=== PATIENT | male | born 1975 | race Hispanic/Latino ===

== ENCOUNTER 2019-09-23 03:58 | Inpatient (IN) | payer SELFPAY ==
[2019-09-23] MEDS ORDERED: Promethazine HCl 25 MG/ML VIAL ONE (04:20)
[2019-09-23 04:37] LABS: Hemoglobin 5.8 g/dL (14.0-18.0); Mean Corpuscular Volume 95.7 fL (78.0-98.0)
[2019-09-23 04:48] LABS: #Lymphocytes 0.7 thou/uL (1.20-3.40); #Monocytes 0.2 thou/uL (0.11-0.59); #Neutrophils 2.5 thou/uL (1.40-6.50); %Basophils 1.2 % (0.0-1.0); %Eosinophils 0.9 % (0.0-10.0); %Lymphocytes 19.3 % (21.0-51.0); %Monocytes 4.9 % (0.0-10.0); %Neutrophils 73.8 % (42.0-75.0); Mean Corpuscular Hemoglobin 35.4 pg (27.0-31.0); Mean Platelet Volume 7.5 fL (7.4-10.4); Platelet Count 65 thou/uL (130-400); Platelet Morphology Comment Appears Decreased; RBC Distribution Width 11.8 % (11.5-14.5); Red Blood Cell (RBC) Count 1.63 mill/uL (4.70-6.10); White Blood Cell (WBC) Count 3.4 thou/uL (4.8-10.8)
[2019-09-23 04:49] LABS: ALT (SGPT) 21 U/L (8-55); AST (SGOT) 45 U/L (5-34); Albumin 3.4 g/dL (3.5-5.0); Alcohol 135 mg/dL (Less than 10); Alkaline Phosphatase 108 U/L (40-110); Anion Gap 18 mmol/L (10-20); BUN (Urea Nitrogen) 27 mg/dL (8.9-20.6); Bilirubin, Total 0.4 mg/dL (0.2-1.2); Calc. Creatinine Clearance 0 mL/min (70-130); Calcium 7.5 mg/dL (7.8-10.44); Carbon Dioxide 10 mmol/L (22-29); Chloride 97 mmol/L (98-107); Estimated GFR-MDRD 24; Globulin 2.8 g/dL (2.4-3.5); Glucose 104 mg/dL (70-105); Potassium 3.5 mmol/L (3.5-5.1); Protein, Total 6.2 g/dL (6.0-8.3); Sodium 121 mmol/L (136-145)
[2019-09-23 06:27] LABS: #Lymphocytes 0.3 thou/uL (1.20-3.40); #Monocytes 0.1 thou/uL (0.11-0.59); #Neutrophils 2.4 thou/uL (1.40-6.50); %Eosinophils 0.5 % (0.0-10.0); %Lymphocytes 11.6 % (21.0-51.0); %Monocytes 4.9 % (0.0-10.0); %Neutrophils 82.9 % (42.0-75.0); Hemoglobin 5.5 g/dL (14.0-18.0); Mean Corpuscular HGB CONC 37.5 g/dL (32.0-36.0); Mean Corpuscular Volume 95.8 fL (78.0-98.0); Mean Platelet Volume 7.5 fL (7.4-10.4); Platelet Count 58 thou/uL (130-400); RBC Distribution Width 11.6 % (11.5-14.5); Red Blood Cell (RBC) Count 1.53 mill/uL (4.70-6.10); White Blood Cell (WBC) Count 2.9 thou/uL (4.8-10.8)
[2019-09-23 06:45] LABS: Band 8 % (5-11); Lymphocytes 16 % (21-51); Monocytes 4 % (0-10)
[2019-09-23 06:56] LABS: Reticulocyte Count 5.3 % (0.5-1.5)
[2019-09-23] MEDS ORDERED: Acetaminophen 325 MG TAB PO PRN (07:26)
[2019-09-23] MEDS ORDERED: Ondansetron PF 4 MG/2 ML Vial IVP PRN (07:26)
[2019-09-23] MEDS ORDERED: Guaifenesin DM 100-10/5 ML UDCUP PO PRN (07:26)
[2019-09-23] MEDS ORDERED: Octreotide Acetate 1,250 MCG in Sodium Chloride 0.9% 250 ML 250 ML IVPB SCH (07:30)
[2019-09-23] MEDS ORDERED: Pantoprazole 80 MG in Sodium Chloride 0.9% 100 ML IVPB SCH (07:30)
[2019-09-23 07:59] LABS: INR-International Normal Ratio 1.1; PTT 34.2 SEC (22.9-36.1); Prothrombin Time 13.7 SEC (12.0-14.7)
[2019-09-23 08:05] VITALS: BMI 22.7
[2019-09-23] MEDS ORDERED: Pantoprazole 80 MG, Admixture Fee 1 EACH in Sodium Chloride 0.9% 100 ML IVPB SCH (08:15)
[2019-09-23 08:21] LABS: Iron 127 ug/dL (65-175); Iron Binding Capacity, Total 175 mcg/dL (261-462)
[2019-09-23] MEDS ORDERED: Dextrose 5 % And 0.9 % NaCl 1,000 ML IV SCH (08:30)
[2019-09-23 09:17] LABS: Ferritin 307.85 ng/mL (22-322)
[2019-09-23] MEDS ORDERED: Multivitamins, Adult 10 ML, Folic Acid 1 MG, Thiamine HCl 100 MG in Dextrose 5 %-0.45 %... IV SCH (10:45)
[2019-09-23] MEDS: hydrALAZINE 25 MG TAB PO SCH ×2 (14:26→20:29)
[2019-09-23] MEDS ORDERED: Dextrose 5% in Water 1,000 ML IV PRN (14:27)
[2019-09-23] MEDS ORDERED: Dextrose 50% Abboject 50 ML SYRINGE SLOW IVP PRN (14:27)
[2019-09-23 14:54] LABS: Hemoglobin 8.2 g/dL (14.0-18.0)
--- NOTE | 2019-09-23 15:12 | HP ---
REASON FOR ADMISSION: Acute blood loss anemia, acute kidney injury, alcohol abuse, and pancytopenia. HISTORY OF PRESENTING ILLNESS: The patient gives history of feeling dizzy when he tried to get up in the morning. He fell back onto his bed. He tried to get up again and was feeling very dizzy. Mr. Lugo felt that something was not right and called EMS. No complaints of cough or expectoration. No history of fever. No complaints of hemoptysis, hematemesis, or melena. He admits to drinking at least 8 beers daily. He has been doing so from 20 years of age. He has known history of diabetes and has not been taking any medications due to financial reasons. No prior hospitalizations for low hemoglobin. He does not recall if he was anemic before. No abdominal pain, nausea, or vomiting. No diarrhea. PAST MEDICAL AND SURGICAL HISTORY: Diabetes mellitus from last 15 years. No surgical history. CURRENT MEDICATIONS: None. ALLERGIES: ALLERGIC TO PENICILLIN. PERSONAL HISTORY: Drinks 8 beers daily. He has been doing so from 20 years of age, quit smoking 6 years back; prior to which, has smoked 1 pack a day for 4 years. Quit cocaine 20 years ago, but has done it for 3 years prior to that. Does not abuse any drugs at present. He lives with his 2 brothers who work in construction. Has a daughter who is 24 years old. FAMILY HISTORY: Mother of breast cancer and its complications at the age of 77. Father of unknown cancer at the age of 79. CODE STATUS: Full. 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 Odin Lugo and Anderson Lugo. REVIEW OF SYSTEMS: CONSTITUTIONAL: Negative for weight loss or gain, ability to conduct usual activities. SKIN: Negative for rash, itching. EYES: Negative for double vision, pain. ENT/MOUTH: Negative for nose bleeding, neck stiffness, pain, tenderness. CARDIOVASCULAR: Negative for palpitations, dyspnea on exertion, orthopnea. RESPIRATORY: Negative for shortness of breath, wheezing, cough, hemoptysis, fever or night sweats. GASTROINTESTINAL: Negative for poor appetite, abdominal pain, heartburn, nausea , vomiting, constipation, or diarrhea. GENITOURINARY: Negative for urgency, frequency, dysuria, nocturia. MUSCULOSKELETAL: Negative for pain, swelling. NEUROLOGIC/PSYCHIATRIC: Negative for anxiety, depression. ALLERGY/IMMUNOLOGIC: Negative for skin rash, bleeding tendency. PHYSICAL EXAMINATION: GENERAL: The patient is a 44-year-old who is currently not in any acute distress. VITAL SIGNS: Blood pressure 190/90, pulse 100 per minute, respiratory rate 18 per minute, temperature 97.7 degrees Fahrenheit, and saturating 100% on room air. NECK: Supple. No elevated JVD. HEENT: Eyes; extraocular muscles intact. Pupils reacting to light. Oral cavity, mucous membranes are dry and pale. No exudates seen. The patient is missing numerous teeth due to dental caries. CARDIOVASCULAR SYSTEM: S1, S2 heard, regular rhythm. RESPIRATORY: Air entry 1+ bilateral. No rales or rhonchi. ABDOMEN: Soft. Bowel sounds heard. No tenderness, rigidity, or guarding. EXTREMITIES: There is mild peripheral edema. No calf tenderness. VASCULAR SYSTEM: Peripheral pulses 1+ bilateral. No ischemic ulcerations or gangrene. CENTRAL NERVOUS SYSTEM: No gross focal deficits noted. The patient is alert, awake, and oriented well. PSYCHIATRIC: The patient's mood is euthymic. No hallucinations or delusions. LABORATORY DATA: White count of 2.9, H and H 5.5 and 14, platelet count is 58 with 82% neutrophils, MCV is 95, retic count is 5.3, PT/INR and PTT within normal limits. Sodium 121, serum bicarb 10, BUN 27, creatinine 2.9, serum glucose 104, calcium 7.5, T-bilirubin 0.4, AST 45, ALT 21, alkaline phosphatase 108. First set of troponin negative. Albumin 3.4. Plasma alcohol levels were 135 mg/dL. Serum iron 127, TIBC 175, percent saturation 73, ferritin 307, folic acid 9.50, and B12 of 484. AFP tumor marker is 2.5. CLINICAL IMPRESSION AND PLAN: The patient will be admitted to medical floor for pancytopenia with severe anemia, unclear if this is acute blood loss. He has known history of alcohol abuse from a long time. Likely, the patient has cirrhosis with pancytopenia and severe anemia. He will be placed on Protonix drip and octreotide drip. We will obtain serial H and H. A CT of the abdomen and pelvis without contrast will be obtained. GI consultation with Dr. Gerhard Shin who is evaluation specialist will be obtained. He will be on hydralazine 25 mg three times daily, Lopressor 25 mg twice daily. Banana bag at 60 mL/hour. The patient has acute kidney injury versus chronic kidney disease, and we will closely monitor him. If needed, Nephrology consultation will be obtained. He has known history of diabetes and has not been taking any medications. He will be on Humalog coverage for now. His serum glucose is 104 at present. His overall prognosis is guarded for now. Job ID: [id number] MTDD
--- NOTE | 2019-09-23 15:39 | CT ---
NONCONTRAST CT ABDOMEN AND PELVIS: 09/23/19 HISTORY: Severe anemia/mass. History of alcohol abuse, cirrhosis. COMPARISON: None. FINDINGS: Lack of intravenous contrast does limit sensitivity for evaluation of the parenchymal organs. Tiny bi lateral pleural effusions are present. Tiny bilateral pleural effusions are present. Very small amount of intraperitoneal free fluid is seen adjacent to the liver and in the pelvis. Nonspecific, but prominent bilateral perinephric stranding is present. A 1.5 cm exophytic increased d ensity lesion is seen involving the medial aspect of the right kidney. This is difficult to character ize without IV contrast. The spleen is enlarged measuring 16 cm in craniocaudal dimensions. Increased density is seen layering dependently within the region of the neck of the gallbladder likel y related to gallbladder calculi. The liver, pancreas, bilateral adrenal glands and urinary bladder demonstrate a grossly normal nonenh anced CT appearance. Vascular calcifications are seen in the pelvis and involves the visualized proximal and lower extremi ty arterial vessels. A normal caliber retrocecal appendix is seen. Loops of small bowel are normal in caliber. Mild degenerative changes are seen in the spine. IMPRESSION: 1. Nonspecific but symmetric bilateral perinephric stranding. However, the degree of inflammator y stranding is greater than typically seen. There is no hydronephrosis or evidence of obstruction. No renal or ureteral calculi are seen bilaterally. 2. Tiny bilateral pleural effusions with minimal ascites. 3. Splenomegaly. POS: [facility]
[2019-09-23] MEDS: cloNIDine 0.1 MG TAB PO PRN (17:06)
[2019-09-23] MEDS ORDERED: Multivitamins, Adult 10 ML, Folic Acid 1 MG, Thiamine HCl 100 MG in Dextrose 5 % And 0.... IV SCH ×2 (17:30→23:00)
--- NOTE | 2019-09-23 17:52 | ULT ---
ULTRASOUND RETROPERITONEUM COMPLETE: (RENAL) DATE: 09/23/2019 HISTORY: 44-year-old male with renal failure FINDINGS: The right kidney measures 11 x 6 x 6 cm. The left kidney measures 12 x 6.5 x 5.5 cm. Both kidneys have normal parenchymal echogenicity. There is no hydronephrosis. At the mid pole parenchyma of the right kidney, there is an approximately 2 x 1.5 cm heterogeneously hypoechoic focal lesion. It is not exophytic. It does not correspond to the exophytic, pedunculated lesion found on CT which is located medially. Cursory images of the urinary bladder demonstrate no gross abnormality. IMPRESSION: 1. No hydronephrosis. 2. A small 2 cm hypoechoic lesion at the lateral aspect of right renal parenchymal midpole. Uncertain whether this represents small hemorrhagic cyst or neoplasm. If iodinated IV contrast is contraindicated, then serial follow-up renal ultrasound are recommended, beginning in 4 months.
[2019-09-23 19:00] LABS: Bacteria/HPF None Seen HPF (None Seen); Bilirubin Negative (Negative); Blood, Urine 2+ (Negative); Clarity Clear (Clear); Glucose, Urine (Dipstick) 50 mg/dL (Negative); Leukocyte Negative Leu/uL (Negative); Nitrite Negative (Negative); Protein, Urine (Dipstick) 300 mg/dL (Neg-Trace); Squamous Epithelial None Seen HPF (0-3); Urobilinogen Normal mg/dL (Less than 2); WBC/HPF 0-3 HPF (0-3)
[2019-09-23] MEDS: Metoprolol Tartrate 25 MG TAB PO SCH (20:30)
[2019-09-23] MEDS: Sodium Bicarbonate Tab 325 MG TAB PO SCH (20:30)
[2019-09-23 20:34] LABS: Hemoglobin 7.3 g/dL (14.0-18.0)
[2019-09-23] MEDS: Pantoprazole 40 MG VIAL IVP SCH (20:35)
[2019-09-23 23:32] LABS: Anion Gap 15 mmol/L (10-20); BUN (Urea Nitrogen) 29 mg/dL (8.9-20.6); Calc. Creatinine Clearance 34 mL/min (70-130); Calcium 8.1 mg/dL (7.8-10.44); Carbon Dioxide 13 mmol/L (22-29); Chloride 104 mmol/L (98-107); Estimated GFR-MDRD 24; Glucose 137 mg/dL (70-105); Potassium 3.8 mmol/L (3.5-5.1); Sodium 128 mmol/L (136-145)
--- NOTE | 2019-09-23 23:55 | CON ---
DATE OF CONSULTATION: 09/23/2019 REASON FOR CONSULTATION: Anemia and alcohol abuse. HISTORY OF PRESENT ILLNESS: Freedom Lugo is a 44-year-old man with a history significant for diabetes, but who does not follow up regularly with any physician and takes no medications. He was admitted to the hospital today with report of severe dizziness and generalized weakness with onset yesterday evening. He says basically he started feeling very tired and was really unable to get out of bed. There have been no associated symptoms such as fever or cough. There has been no abdominal pain, nausea, vomiting, or diarrhea. He has had no overt bleeding from anywhere. He denies significant epistaxis or any hematemesis, melena, hematochezia, or gross hematuria. He was found to have severe anemia, really pancytopenia, on presentation here with hemoglobin 5.5, normal MCV 95.8, platelets 58, WBC 2.9. Ferritin, B12, and folic acid are normal. He has some degree of acute kidney injury as well with creatinine up to 2.9, hyponatremic with sodium 121. Notably, he reports drinking 8-10 or even more beers every day and this has been his pattern for a long time. He does not think it has ever caused any problems before. Currently, he still feels weak, but really endorses no other symptoms. PAST MEDICAL HISTORY: Diabetes. PAST SURGICAL HISTORY: None. ALLERGIES: PENICILLIN. OUTPATIENT MEDICATIONS: None. INPATIENT MEDICATIONS: 1. Hydralazine 25 mg p.o. t.i.d. 2. Insulin sliding scale. 3. Banana bag. 4. IV octreotide. 5. IV Protonix. FAMILY HISTORY: His mother had breast cancer. SOCIAL HISTORY: He drinks 8-10 or even more beers per day. He has a remote history of smoking and remote history of cocaine use. REVIEW OF SYSTEMS: Including constitutional, head, eyes, ears, nose, throat, GI, , cardiovascular, respiratory, musculoskeletal, neurologic systems is negative except as noted in the HPI. PHYSICAL EXAMINATION: VITAL SIGNS: Temperature 98.4, pulse 85, blood pressure 202/88, 100% oxygen saturation on room air. GENERAL: A 44-year-old man lying in bed comfortably, in no distress. MENTAL: He is alert and fully oriented. He is able to converse appropriately. SKIN: He has multiple tattoos. No jaundice. No rashes were palpable. EYES: No scleral icterus. Extraocular movements intact. ENT: Mucous membranes moist. No oral lesions. LYMPH: No submandibular or supraclavicular lymphadenopathy. THYROID: Nontender to palpation. HEART: Regular rate and rhythm. LUNGS: Clear to auscultation bilaterally. ABDOMEN: Bowel sounds present. Soft, nontender to palpation throughout. EXTREMITIES: No peripheral edema. VESSELS: Radial pulses 2+ bilaterally. NEURO: Cranial nerves 2-12 intact bilaterally. No focal deficits. LABORATORY STUDIES: Hemoglobin 5.5 with MCV 95.8, WBC 2.9, platelets 58. After 2 units of RBCs, hemoglobin is up to 8.2. INR is normal at 1.1. Normal folic acid, 9.5. Normal B12 at 484. Normal ferritin, 307, iron 127, TIBC is depressed to 175, giving a 73% iron saturation. Blood alcohol level is elevated to 135. AFP is normal at 2.5. Troponin negative at 0.028. AST is mildly elevated to 45, but otherwise normal LFTs with ALT 21, alkaline phosphatase 108, total bilirubin 0.4, albumin 3.4. Sodium 121, potassium 3.5, BUN 27, creatinine 2.90, calcium 7.5, glucose 104. IMAGING STUDIES: CT of the abdomen and pelvis without contrast shows bilateral symmetric perinephric stranding which is nonspecific. There is minimal ascites, splenomegaly to 16 cm, but normal-appearing liver, pancreas and bowel. ASSESSMENT AND PLAN: 1. Pancytopenia. The patient is presenting with severe symptomatic pancytopenia, without any complaint of overt bleeding at all. This does not appear to represent any acute gastrointestinal hemorrhage, certainly we would be seeing evidence of that if it were responsible for his anemia. Of course, chronic gastrointestinal bleeding lesion could be considered, but would not explain the pancytopenia and other metabolic abnormalities. We are going to hold off on any endoscopic investigation for now, could consider EGD and colonoscopy later this admission once his metabolic issues stabilize. 2. Kidney injury, acute versus chronic. His creatinine is elevated to 2.9 with unknown baseline. Note, he is hypertensive. Nephrology has been consulted. 3. Alcohol abuse. I discussed with the patient that he might be having direct bone marrow toxicity from his heavy alcohol use, which could be responsible for the cytopenias, could be contributing to the hyponatremia as well. 4. Hyponatremia. 5. Hypertension. I think the octreotide can be discontinued as this really does not appear to represent a variceal bleed. IV pantoprazole is fine for now as we trend hemoglobin. We are not going to plan for any endoscopic investigation. I will go ahead and start him on a clear liquid diet. We will order some hepatic workup including viral serologies, autoimmune markers, and ceruloplasmin to be drawn tomorrow morning. Gastroenterology can follow along. Please call back anytime with questions or concerns. Job ID: [id number]
[2019-09-24] MEDS: MULTIVITAMINS IV SCH (00:26)
[2019-09-24] MEDS: FOLIC ACID IV SCH (00:26)
[2019-09-24] MEDS: THIAMINE HCL IV SCH (00:26)
[2019-09-24] MEDS: DEXTROSE 5% IV SCH (00:26)
[2019-09-24] MEDS: [UNRECOGNIZED DRUG - OTHER] IV SCH (00:26)
--- NOTE | 2019-09-24 00:33 | CON ---
DATE OF CONSULTATION: HISTORY OF PRESENT ILLNESS: Mr. Lugo is a 44-year-old male, who was admitted due to an acute blood loss as well as acute kidney injury. Patient has a history of alcohol abuse. He was found also to have pancytopenia. Initially presented with dizziness. He had a fall. Based on the history, the patient denies any associated diarrhea, nausea, or vomiting. He also had no complaints of hemoptysis, hematemesis, or melena. We are being consulted for his acute kidney injury. Please note this patient has longstanding history of diabetes mellitus. REVIEW OF SYSTEMS: Positive for dizziness. No chest pain. No shortness of breath. No nausea. No vomiting. No hemoptysis. No melena. No hematemesis. No abdominal pain. No headache. No dysuria. No urinary frequency. No productive cough. Energy level is fair. Occasional joint pains. MEDICATIONS: 1. Multivitamin IV q.24 hours. 2. Clonidine 0.1 mg q.4 p.r.n. 3. D5 water as directed. 4. Humalog sliding scale. 5. Hydralazine 25 mg p.o. t.i.d. 6. Metoprolol 25 mg p.o. t.i.d. 7. Octreotide as directed. 8. Zofran p.r.n. 9. Protonix 80 mg IV daily. PAST MEDICAL HISTORY: 1. Type 2 diabetes mellitus at least 15 years' duration. 2. Hypertension. PAST SURGICAL HISTORY: No significant surgeries. SOCIAL HISTORY: Patient lives in [place], one child. 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 Smoked for 5 years, one pack a day, but currently not smoking. Alcohol 8 to 10 beers per day. Denies any current IV drug use, but used cocaine 20 years ago. EDUCATION: Sixth grade. ALLERGIES: PENICILLIN. TRAUMA: None. IMMUNIZATIONS: Not up to date. HOSPITALIZATIONS: Please see past medical history. FAMILY HISTORY: No family history of ESRD. PHYSICAL EXAMINATION: VITAL SIGNS: Blood pressure 211/94, heart rate 88, respiratory rate 20, temperature 98.2, and pulse ox 98% on room air. GENERAL: Awake, alert, comfortable, not in overt distress. SKIN: Adequate turgor. HEENT: Slightly pale conjunctivae. Anicteric sclerae. NECK: No neck mass. No carotid bruits. No JVD. CHEST: No deformities. LUNGS: Clear breath sounds. HEART: Normal sinus rhythm. No murmur. No gallops. No rubs. ABDOMEN: Globular. Soft. Nontender. No masses. EXTREMITIES: No edema. No deformities. IMAGING: CT scan of the abdomen and pelvis on September 23, 2019, showed nonspecific but symmetric bilateral perinephric stranding. There is no hydronephrosis or evidence of obstruction. No renal or ureteral calculi seen. Tiny bilateral pleural effusion, finding of splenomegaly. LABORATORIES: September 23, 2019, 1447, hemoglobin 8.2. September 23, 2019, 5:52 a.m., white count 2.9, hemoglobin 5.5, platelet count is 58,000. Retic count 5.3. September 23, 2019; sodium 121, potassium 3.5, chloride 97, carbon dioxide 10, BUN 27, creatinine 2.9, calcium is 7.5, AST 45, ALT 21, and albumin 3.4. Iron is 127, TIBC 175, and folate 9.5. Plasma alcohol 135. ASSESSMENT AND PLAN: 1. Acute kidney injury/chronic renal failure-consider - the possibility of an intrinsic renal problem. He has longstanding history of diabetes mellitus. We will be reviewing urinalysis with this patient. CAT scan did not show any renal obstruction. Consider doing renal ultrasound to further delineate this perinephric stranding and/or exophytic mass. 2. Pancytopenia-patient being considered for a possible gastrointestinal bleed due to his underlying heavy alcohol intake and that he may have a question karlos of cirrhosis. However, the CT scan of the abdomen and pelvis showed that the liver was grossly normal. However, this is without contrast. 3. The plan is simply to observe and there is no indication for any dialytic intervention. As previously mentioned, review urinalysis. 4. Metabolic acidosis. Consider sodium bicarbonate 650 mg p.o. t.i.d. 5. If no improvement with the renal function, consider changing current IV fluid to a normal saline tomorrow. Job ID: [id number]
[2019-09-24 05:46] LABS: #Lymphocytes 0.4 thou/uL (1.20-3.40); #Monocytes 0.2 thou/uL (0.11-0.59); #Neutrophils 2.1 thou/uL (1.40-6.50); %Basophils 0.8 % (0.0-1.0); %Eosinophils 0.7 % (0.0-10.0); %Lymphocytes 14.3 % (21.0-51.0); %Monocytes 6.6 % (0.0-10.0); %Neutrophils 77.6 % (42.0-75.0); Hemoglobin 7.2 g/dL (14.0-18.0); Mean Corpuscular HGB CONC 34.4 g/dL (32.0-36.0); Mean Corpuscular Hemoglobin 33.3 pg (27.0-31.0); Mean Corpuscular Volume 96.8 fL (78.0-98.0); Mean Platelet Volume 7.9 fL (7.4-10.4); Platelet Count 61 thou/uL (130-400); RBC Distribution Width 12.6 % (11.5-14.5); Red Blood Cell (RBC) Count 2.16 mill/uL (4.70-6.10); White Blood Cell (WBC) Count 2.7 thou/uL (4.8-10.8)
[2019-09-24 06:02] LABS: Anion Gap 13 mmol/L (10-20); BUN (Urea Nitrogen) 29 mg/dL (8.9-20.6); Calc. Creatinine Clearance 34 mL/min (70-130); Calcium 7.7 mg/dL (7.8-10.44); Carbon Dioxide 13 mmol/L (22-29); Chloride 104 mmol/L (98-107); Estimated GFR-MDRD 24; Glucose 206 mg/dL (70-105); Potassium 3.5 mmol/L (3.5-5.1); Sodium 126 mmol/L (136-145)
[2019-09-24 06:25] LABS: HBCM Index 0.11 S/CO (0-0.79); HBSAg Index 0.18 S/CO (0-0.99); Hep A IgM AB Non-Reactive (NonReactive); Hep A IgM S/CO 0.18 S/CO (0-0.79); Hep B Surf Ag Non-Reactive S/CO (NonReactive); Hep C IgG Ab Non-Reactive (NonReactive); Hep C Index 0.07 S/CO (0-0.79); Hepatitis B Core IgM Abs Non-Reactive (NonReactive)
[2019-09-24] MEDS: HumaLOG 300 UNITS/3 ML VIAL SC PRN (06:30)
[2019-09-24] MEDS: Pantoprazole 40 MG VIAL IVP SCH (08:19)
[2019-09-24] MEDS: Sodium Bicarbonate Tab 325 MG TAB PO SCH ×3 (08:19→20:50)
[2019-09-24] MEDS: hydrALAZINE 25 MG TAB PO SCH ×3 (08:19→20:50)
[2019-09-24] MEDS: Metoprolol Tartrate 25 MG TAB PO SCH ×2 (08:19→20:50)
[2019-09-24 09:15] LABS: Hemoglobin 7.1 g/dL (14.0-18.0)
--- NOTE | 2019-09-24 10:10 | PRG ---
DATE OF SERVICE: 09/24/2019 SUBJECTIVE: Mr. Lugo is a 44-year-old male, who was admitted for symptomatic anemia. He has received several units of packed RBC. We are following him up for his chronic renal failure. Of interest, this patient may have underlying diabetic nephropathy due to his longstanding history of diabetes mellitus. Please note, his urinalysis did show evidence of proteinuria. No other complaints today. No chest pain or shortness of breath. The patient has also been seen by the GI marine engineering consultant, Dr. Kip Hennessy. My recommendation by GI is to stop the octreotide since there is no evidence of any variceal bleed at the present time. Serological workup has been recommended by GI. He voices no other complaints. OBJECTIVE: VITAL SIGNS: Blood pressure 186/85, heart rate 66, respiratory rate 20, temperature 98.1, and pulse oximetry 100% on room air. GENERAL: Awake, alert, comfortable, not in distress. SKIN: Adequate turgor. HEENT: Slightly pale conjunctivae. Anicteric sclerae. NECK: No neck mass. No carotid bruits. No JVD. CHEST: No deformities. LUNGS: Clear breath sounds. HEART: Normal sinus rhythm. No murmurs, gallops, or rubs. ABDOMEN: Globular, soft, nontender. No masses. EXTREMITIES: No edema. No deformities. MEDICATIONS: Medications of September 24, 2019, were reviewed. LABORATORY DATA: Laboratories of September 24, 2019, hemoglobin 7.1. Sodium 126, potassium 3.5, chloride 104, carbon dioxide 13, BUN 29, creatinine 2.89, and calcium 7.7. ASSESSMENT AND PLAN: 1. Chronic renal failure - with the proteinuria and longstanding history of diabetes mellitus, consider diabetic nephropathy. Renal function is stable. No indication for any dialytic intervention. 2. Metabolic acidosis. Continuing sodium bicarbonate 650 mg p.o. t.i.d. 3. Anemia - on p.r.n. blood transfusion. Continue supportive care. 4. Hyponatremia - this could be related to his heavy alcohol intake. Continue free water restriction. Serum sodium is actually slightly improved from 121 to the most recent value of 126. If persistent hyponatremia, we will consider at least changing IV fluid from D5 water to at least D5 normal saline. Agree with current management. 5. We will recheck basic metabolic panel and CBC in a.m. Job ID: [id number]
[2019-09-24] MEDS ORDERED: Epoetin (ESRD) 10,000 UNITS/ML VIAL SC SCH (10:45)
[2019-09-24] MEDS ORDERED: EPOETIN ALFA-EPBX (ESRD) 10,000 UNIT/ML VIAL SC SCH (10:45)
--- NOTE | 2019-09-24 10:46 | PDOC.HOSPP ---
- Subjective Encounter Date: 09/24/19 Encounter Time: 08:45 Subjective: Patient seen and examined. No new complaints. No overnight events, pt denies any blood loss from any site but his Hb is low - Objective Vital Signs & Weight: Vital Signs (12 hours) Temp Pulse Resp BP Pulse Ox 09/24/19 08:00 100 09/24/19 07:57 98.1 F 66 20 186/85 H 100 09/24/19 04:00 98.6 F 68 16 183/84 H 100 09/24/19 02:56 99 09/24/19 00:23 99.0 F 69 16 169/74 H 99 Weight Weight 158 lb 8 oz I&O: 09/23/19 09/24/19 09/25/19 06:59 06:59 06:59 Intake Total 1200 180 Output Total 1000 Balance 200 180 Result Diagrams: 09/24/19 08:55 09/24/19 05:17 Additional Labs: Accuchecks 09/24/19 09/23/19 09/23/19 05:21 20:14 17:00 POC Glucose 240 H 151 H 115 H 09/23/19 10:58 POC Glucose 106 Radiology Reviewed by me: Yes EKG Reviewed by me: Yes Hospitalist ROS - Review of Systems Constitutional: denies: fever, chills, sweats, weakness, malaise, other ENT: denies: ear pain, ear discharge, nose pain, nose discharge, nose congestion , mouth pain, mouth swelling, throat pain, throat swelling, other Respiratory: denies: cough, dry, shortness of breath, hemoptysis, SOB with excertion, pleuritic pain, sputum, wheezing, other Cardiovascular: denies: chest pain, palpitations, orthopnea, paroxysmal noc. dyspnea, edema, light headedness, other Gastrointestinal: denies: nausea, vomiting, abdominal pain, diarrhea, constipation, melena, hematochezia, other Genitourinary: denies: dysuria, frequency, incontinence, hematuria, retention, other Musculoskeletal: denies: neck pain, shoulder pain, arm pain, back pain, hand pain, leg pain, foot pain, other - Medication Medications: Active Medications Generic Name Dose Route Start Last Admin Trade Name Freq PRN Reason Stop Dose Admin Acetaminophen 650 mg 09/23/19 07:26 09/23/19 20:30 Tylenol PO 650 mg Q4H PRN Administration Headache/Fever/Mild Pain (1-3) Clonidine 0.1 mg 09/23/19 14:02 09/23/19 17:06 Catapres PO 0.1 mg Q4H PRN Administration sbp>160 Hydralazine HCl 25 mg 09/23/19 15:00 09/24/19 08:19 Apresoline PO 25 mg TID ALISON Administration Multivitamins 10 ml/ Folic 1,011.2 mls @ 125 mls/hr 09/24/19 23:59 09/24/19 00:26 Acid 1 mg/ Thiamine HCl 100 mg IV 1,011.2 mls / Dextrose/Water 2359 ALISON Administration Insulin Human Lispro 0 units 09/23/19 14:27 09/24/19 06:30 Humalog SC 3 unit .MILD SLIDING SCALE PRN Administration Mild Correctional Scale Metoprolol Tartrate 25 mg 09/23/19 21:00 09/24/19 08:19 Lopressor PO 25 mg BID ALISON Administration Pantoprazole Sodium 40 mg 09/23/19 21:00 09/24/19 08:19 Protonix IVP 40 mg BID ALISON Administration Sodium Bicarbonate 650 mg 09/23/19 21:00 09/24/19 08:19 Bicarbonate, Sodium PO 650 mg TID ALISON Administration Sodium Chloride 10 ml 09/23/19 09:00 09/24/19 08:20 Flush - Normal Saline IVF 10 ml Q12HR ALISON Administration - Exam General Appearance: NAD, awake alert Eye: PERRL, anicteric sclera ENT: normocephalic atraumatic, no oropharyngeal lesions Neck: supple, symmetric, no JVD, no thyromegaly Heart: RRR, no murmur, no gallops, no rubs Respiratory: CTAB, no wheezes, no rales Gastrointestinal: soft, non-tender, non-distended, normal bowel sounds Extremities: no cyanosis, no clubbing Skin: normal turgor, no lesions Neurological: no focal deficits Musculoskeletal: normal tone, normal strength Psychiatric: normal affect, normal behavior Hosp A/P (1) Symptomatic anemia Code(s): D64.9 - ANEMIA, UNSPECIFIED Status: Acute (2) Acute on chronic kidney failure Code(s): N17.9 - ACUTE KIDNEY FAILURE, UNSPECIFIED; N18.9 - CHRONIC KIDNEY DISEASE, UNSPECIFIED Status: Acute Qualifiers: Chronic kidney disease stage: unspecified stage (3) Hyponatremia Code(s): E87.1 - HYPO-OSMOLALITY AND HYPONATREMIA Status: Acute (4) Pancytopenia Code(s): D61.818 - OTHER PANCYTOPENIA Status: Acute (5) Cholelithiases Code(s): K80.20 - CALCULUS OF GALLBLADDER W/O CHOLECYSTITIS W/O OBSTRUCTION Status: Chronic Qualifiers: Cholelithiasis location: gallbladder Cholecystitis presence: without cholecystitis Biliary obstruction: without biliary obstruction Qualified Code(s): K80.20 - Calculus of gallbladder without cholecystitis without obstruction (6) Alcohol abuse Code(s): F10.10 - ALCOHOL ABUSE, UNCOMPLICATED Status: Chronic (7) Metabolic acidosis Code(s): E87.2 - ACIDOSIS Status: Acute (8) Cirrhosis of liver Code(s): K74.60 - UNSPECIFIED CIRRHOSIS OF LIVER Status: Suspected Qualifiers: Hepatic cirrhosis type: alcoholic cirrhosis Ascites presence: with ascites Qualified Code(s): K70.31 - Alcoholic cirrhosis of liver with ascites (9) Diabetes type 2, controlled Code(s): E11.9 - TYPE 2 DIABETES MELLITUS WITHOUT COMPLICATIONS Status: Acute Qualifiers: Diabetes mellitus ferry terminal supervisor insulin use: with correction use Diabetes mellitus complication status: with kidney complications Diabetes mellitus complication detail: with chronic kidney disease Chronic kidney disease stage : unspecified stage Qualified Code(s): E11.22 - Type 2 diabetes mellitus with diabetic chronic kidney disease; Z79.4 - superintendent terminal (current) use of insulin - Plan old records reviewed/req will give one unit PRBC continue sodium bicarbonate as per nephro check stool fo guaiac GI following repeat labs tomorrow ambulate as tolerated will give procrit
[2019-09-24] MEDS ORDERED: Loratadine 10 MG TAB PO PRN (11:33)
[2019-09-24] MEDS ORDERED: Senokot S 8.6-50 MG TAB PO PRN (11:33)
[2019-09-24] MEDS ORDERED: Cepastat Lozenges 1 LOZ PO PRN (11:33)
[2019-09-24] MEDS ORDERED: Sodium Chloride 0.65% Nasal 44 ML BOT EA NARE PRN (11:33)
[2019-09-24] MEDS ORDERED: Ondansetron ODT 4 MG TAB SL PRN (11:33)
[2019-09-24] MEDS ORDERED: Zolpidem Tartrate 5 MG TAB PO PRN (11:33)
[2019-09-24] MEDS ORDERED: Acetaminophen 500 MG TAB PO PRN (11:33)
[2019-09-24] MEDS ORDERED: Loperamide HCl 2 MG CAP PO PRN (11:33)
[2019-09-24] MEDS ORDERED: hydrALAZINE 20 MG/ML VIAL SLOW IVP PRN (11:33)
[2019-09-24] MEDS ORDERED: Calcium Carbonate 500 MG ChewTAB PO PRN (11:33)
[2019-09-24] MEDS ORDERED: Diabetic Tussin 200 MG/10 ML UDCUP PO PRN (11:33)
[2019-09-24] MEDS ORDERED: Bisacodyl 10 MG SUPP PR PRN (11:33)
[2019-09-24] MEDS ORDERED: Guaifenesin DM 100-10/5 ML UDCUP PO PRN (11:51)
[2019-09-24] MEDS: cloNIDine 0.1 MG TAB PO PRN (14:51)
--- NOTE | 2019-09-24 16:55 | PRG ---
DATE OF SERVICE: SUBJECTIVE: The patient had received 3 units of blood and reports feeling better. He still has some slight dizziness when getting out of bed. There is no overt bleeding noted. He denies any nausea, vomiting, or abdominal pain. PHYSICAL EXAMINATION: VITAL SIGNS: Temperature is 98.3, blood pressure 162/85, and pulse 61. GENERAL: He is alert, no distress. HEENT: Shows anicteric sclerae. Oropharynx is moist and clear. CV: Shows normal S1 and S2. Regular rate and rhythm. CHEST: Shows breath sounds. ABDOMEN: Soft, nontender, good bowel sounds. No mass or organomegaly. EXTREMITIES: Show no edema. LABORATORY DATA: White blood count 2.7, hemoglobin 7.1 (up from 5.5 after 3 units of RBC), MCV of 96, and platelet count of 61,000. Sodium 126, creatinine 2.89, BUN of 29. Hepatitis panel negative for A, B, and C antibody. ASSESSMENT: 1. Pancytopenia, likely from alcohol myelosuppression. No signs of gastrointestinal blood loss. 2. Likely chronic renal failure from longstanding diabetes and hypertension. 3. Metabolic acidosis. 4. Alcohol abuse, splenomegaly on CT, but no other signs of portal hypertension or overt cirrhosis on imaging study. RECOMMENDATION: No indication for endoscopy at the present time unless he has evidence of overt GI bleeding or blood in stool. We will check stool FIT. Job ID: [id number]
[2019-09-24] MEDS ORDERED: Multivitamins, Adult 10 ML, Folic Acid 1 MG, Thiamine HCl 100 MG in Dextrose 5 % And 0.... IV SCH (17:00)
[2019-09-24 19:25] LABS: Anion Gap 14 mmol/L (10-20); BUN (Urea Nitrogen) 31 mg/dL (8.9-20.6); Calc. Creatinine Clearance 32 mL/min (70-130); Calcium 8.2 mg/dL (7.8-10.44); Carbon Dioxide 16 mmol/L (22-29); Chloride 104 mmol/L (98-107); Estimated GFR-MDRD 23; Glucose 172 mg/dL (70-105); Potassium 3.5 mmol/L (3.5-5.1); Sodium 130 mmol/L (136-145)
[2019-09-25] MEDS: MULTIVITAMINS IV SCH (00:46)
[2019-09-25] MEDS: DEXTROSE 5% IV SCH (00:46)
[2019-09-25] MEDS: FOLIC ACID IV SCH (00:46)
[2019-09-25] MEDS: THIAMINE HCL IV SCH (00:46)
[2019-09-25] MEDS: [UNRECOGNIZED DRUG - OTHER] IV SCH (00:46)
[2019-09-25] MEDS: HumaLOG 300 UNITS/3 ML VIAL SC PRN ×2 (05:44→16:39)
[2019-09-25 06:02] LABS: #Lymphocytes 0.4 thou/uL (1.20-3.40); #Monocytes 0.3 thou/uL (0.11-0.59); #Neutrophils 2.3 thou/uL (1.40-6.50); %Eosinophils 1.2 % (0.0-10.0); %Lymphocytes 13.7 % (21.0-51.0); %Monocytes 10.1 % (0.0-10.0); %Neutrophils 74.1 % (42.0-75.0); Hemoglobin 7.5 g/dL (14.0-18.0); Mean Corpuscular HGB CONC 35.4 g/dL (32.0-36.0); Mean Corpuscular Hemoglobin 33.6 pg (27.0-31.0); Mean Corpuscular Volume 94.9 fL (78.0-98.0); Mean Platelet Volume 7.6 fL (7.4-10.4); Platelet Count 61 thou/uL (130-400); RBC Distribution Width 13.5 % (11.5-14.5); Red Blood Cell (RBC) Count 2.23 mill/uL (4.70-6.10); White Blood Cell (WBC) Count 3.1 thou/uL (4.8-10.8)
[2019-09-25 06:16] LABS: Anion Gap 10 mmol/L (10-20); BUN (Urea Nitrogen) 30 mg/dL (8.9-20.6); Calc. Creatinine Clearance 32 mL/min (70-130); Calcium 8.1 mg/dL (7.8-10.44); Carbon Dioxide 16 mmol/L (22-29); Chloride 105 mmol/L (98-107); Estimated GFR-MDRD 22; Glucose 154 mg/dL (70-105); Potassium 3.2 mmol/L (3.5-5.1); Sodium 128 mmol/L (136-145)
[2019-09-25 06:20] LABS: ALT (SGPT) 14 U/L (8-55); AST (SGOT) 24 U/L (5-34); Albumin 2.9 g/dL (3.5-5.0); Alkaline Phosphatase 81 U/L (40-110); Bilirubin, Direct 0.4 mg/dL (0.1-0.3); Bilirubin, Total 0.7 mg/dL (0.2-1.2); Protein, Total 5.6 g/dL (6.0-8.3)
[2019-09-25] MEDS: hydrALAZINE 25 MG TAB PO SCH ×3 (09:02→21:10)
[2019-09-25] MEDS: Metoprolol Tartrate 25 MG TAB PO SCH ×2 (09:02→21:10)
[2019-09-25] MEDS: Famotidine 20 MG TAB PO SCH (09:02)
[2019-09-25] MEDS: Sodium Bicarbonate Tab 325 MG TAB PO SCH ×3 (09:02→21:10)
[2019-09-25] MEDS: Folic Acid 1 MG TAB PO SCH (09:05)
[2019-09-25] MEDS: Cyanocobalamin (Vitamin B-12) 1,000 MCG TAB PO SCH (09:05)
[2019-09-25] MEDS ORDERED: Meclizine HCl 12.5 MG TAB PO PRN (09:32)
[2019-09-25] MEDS ORDERED: Potassium Chloride 20 MEQ TAB PO SCH (09:45)
[2019-09-25] MEDS ORDERED: hydrALAZINE 25 MG TAB PO SCH ×3 (09:51→10:15)
--- NOTE | 2019-09-25 10:10 | PDOC.HOSPP ---
- Subjective Encounter Date: 09/25/19 Encounter Time: 08:50 Subjective: c/o vertigo, no overnight event. - Objective Vital Signs & Weight: Vital Signs (12 hours) Temp Pulse Resp BP BP Pulse Ox 09/25/19 09:02 63 168/85 H 09/25/19 07:50 98.6 F 63 16 168/85 H 100 09/25/19 04:00 98.4 F 65 20 171/72 H 100 09/25/19 00:00 98.3 F 64 20 138/65 100 Weight Admit Weight 158 lb 8 oz Weight 158 lb 8 oz I&O: 09/24/19 09/25/19 09/26/19 06:59 06:59 06:59 Intake Total 1200 1210 Output Total 1000 800 Balance 200 410 Result Diagrams: 09/25/19 05:32 09/25/19 05:32 Additional Labs: Accuchecks 09/25/19 09/24/19 09/24/19 04:21 19:33 16:38 POC Glucose 189 H 199 H 167 H 09/24/19 11:41 POC Glucose 131 H Hospitalist ROS - Review of Systems Eyes: denies: pain, vision change, conjunctivae inflammation, eyelid inflammation, redness, other ENT: denies: ear pain, ear discharge, nose pain, nose discharge, nose congestion , mouth pain, mouth swelling, throat pain, throat swelling, other Respiratory: denies: cough, dry, shortness of breath, hemoptysis, SOB with excertion, pleuritic pain, sputum, wheezing, other Cardiovascular: denies: chest pain, palpitations, orthopnea, paroxysmal noc. dyspnea, edema, light headedness, other Gastrointestinal: denies: nausea, vomiting, abdominal pain, diarrhea, constipation, melena, hematochezia, other Genitourinary: denies: dysuria, frequency, incontinence, hematuria, retention, other Musculoskeletal: denies: neck pain, shoulder pain, arm pain, back pain, hand pain, leg pain, foot pain, other - Medication Medications: Active Medications Generic Name Dose Route Start Last Admin Trade Name Freq PRN Reason Stop Dose Admin Acetaminophen 650 mg 09/23/19 07:26 09/23/19 20:30 Tylenol PO 650 mg Q4H PRN Administration Headache/Fever Clonidine 0.1 mg 09/23/19 14:02 09/24/19 14:51 Catapres PO 0.1 mg Q4H PRN Administration sbp>160 Cyanocobalamin 1,000 mcg 09/25/19 09:00 09/25/19 09:05 Vitamin B-12 PO 1,000 mcg DAILY ALISON Administration Famotidine 20 mg 09/25/19 09:00 09/25/19 09:02 Pepcid PO 20 mg DAILY ALISON Administration Folic Acid 1 mg 09/25/19 09:00 09/25/19 09:05 Folvite PO 1 mg DAILY ALISON Administration Insulin Human Lispro 0 units 09/23/19 14:27 09/25/19 05:44 Humalog SC 2 unit .MILD SLIDING SCALE PRN Administration Mild Correctional Scale Metoprolol Tartrate 25 mg 09/23/19 21:00 09/25/19 09:02 Lopressor PO 25 mg BID ALISON Administration Sodium Bicarbonate 650 mg 09/23/19 21:00 09/25/19 09:02 Bicarbonate, Sodium PO 650 mg TID ALISON Administration Sodium Chloride 10 ml 09/23/19 09:00 09/25/19 09:03 Flush - Normal Saline IVF 10 ml Q12HR ALISON Administration - Exam General Appearance: NAD, awake alert Eye: PERRL, anicteric sclera ENT: normocephalic atraumatic, no oropharyngeal lesions Neck: supple, symmetric, no JVD, no thyromegaly Heart: RRR, no murmur, no gallops, no rubs Respiratory: CTAB, no wheezes, no rales, no ronchi Gastrointestinal: soft, non-tender, non-distended, normal bowel sounds Extremities: no cyanosis, no clubbing, no edema Skin: normal turgor, no lesions Neurological: no focal deficits Hosp A/P (1) Symptomatic anemia Code(s): D64.9 - ANEMIA, UNSPECIFIED Status: Acute (2) Acute on chronic kidney failure Code(s): N17.9 - ACUTE KIDNEY FAILURE, UNSPECIFIED; N18.9 - CHRONIC KIDNEY DISEASE, UNSPECIFIED Status: Acute Qualifiers: Chronic kidney disease stage: unspecified stage (3) Hyponatremia Code(s): E87.1 - HYPO-OSMOLALITY AND HYPONATREMIA Status: Acute (4) Pancytopenia Code(s): D61.818 - OTHER PANCYTOPENIA Status: Acute (5) Cholelithiases Code(s): K80.20 - CALCULUS OF GALLBLADDER W/O CHOLECYSTITIS W/O OBSTRUCTION Status: Chronic Qualifiers: Cholelithiasis location: gallbladder Cholecystitis presence: without cholecystitis Biliary obstruction: without biliary obstruction Qualified Code(s): K80.20 - Calculus of gallbladder without cholecystitis without obstruction (6) Alcohol abuse Code(s): F10.10 - ALCOHOL ABUSE, UNCOMPLICATED Status: Chronic (7) Metabolic acidosis Code(s): E87.2 - ACIDOSIS Status: Acute (8) Cirrhosis of liver Code(s): K74.60 - UNSPECIFIED CIRRHOSIS OF LIVER Status: Suspected Qualifiers: Hepatic cirrhosis type: alcoholic cirrhosis Ascites presence: with ascites Qualified Code(s): K70.31 - Alcoholic cirrhosis of liver with ascites (9) Diabetes type 2, controlled Code(s): E11.9 - TYPE 2 DIABETES MELLITUS WITHOUT COMPLICATIONS Status: Acute Qualifiers: Diabetes mellitus ferry terminal supervisor insulin use: with ferry terminal supervisor use Diabetes mellitus complication status: with kidney complications Diabetes mellitus complication detail: with chronic kidney disease Chronic kidney disease stage : unspecified stage Qualified Code(s): E11.22 - Type 2 diabetes mellitus with diabetic chronic kidney disease; Z79.4 - senior care (current) use of insulin - Plan old records reviewed/req will give one unit PRBC continue sodium bicarbonate as per nephro check stool fo guaiac GI following repeat labs tomorrow ambulate as tolerated will give procrit 09/25/19 add ferrous sulfate add meclizine as needed for vertigo add amlodipine for high BP if renal function stable then will consider DC DC IVF
--- NOTE | 2019-09-25 10:27 | PRG ---
DATE OF SERVICE: 09/25/2019 SUBJECTIVE: Mr. Lugo is a 44-year-old male, who was seen by the Renal Service for his chronic renal failure. He most likely has chronic renal failure from diabetic nephropathy with the proteinuria and longstanding history of diabetes mellitus. Renal function has actually remained stable for the last several days. Most recent creatinine is 3.07, and on admission, he was 2.89. He has been empirically volume repleted. The patient voices no new complaints except for dizziness on standing. He was also admitted due to the symptomatic anemia. He has received p.r.n. blood transfusion. GI is following this patient. The feeling is no indication for any endoscopy for the moment. OBJECTIVE: VITAL SIGNS: Blood pressure is noted at 168/85, heart rate 63, respiratory rate 16, temperature 98.6, pulse ox 100%. GENERAL: Awake, alert, sitting comfortable, not in overt distress. SKIN: Adequate turgor. HEENT: He has slightly pale conjunctivae. Anicteric sclerae. NECK: No neck mass. No carotid bruits. No JVD. CHEST: No deformities. LUNGS: Clear breath sounds. HEART: Normal sinus rhythm. No murmur. No gallops. No rubs. ABDOMEN: Globular, soft, and nontender. No masses. EXTREMITIES: No edema. No deformities. MEDICATIONS: Medications of September 25, 2019, were reviewed. LABORATORY DATA: Laboratories of September 25, 2019: White count 3.1, hemoglobin 7.1, platelet count 61,000. September 25, 2019: Sodium 128, potassium 3.2, chloride 105, carbon dioxide 16, BUN 30, creatinine 3.07, GFR 22 mL/minute, calcium 8.1, albumin is 2.9. ASSESSMENT AND PLAN: 1. Chronic renal failure - with the proteinuria and longstanding history of diabetes mellitus, consider diabetic nephropathy. Renal function is stable. Agree with current management. There is no indication for any dialytic intervention. Continue to optimize blood pressure control. 2. Metabolic acidosis. The patient has been started on sodium bicarbonate 650 mg p.o. t.i.d. 3. Anemia. P.r.n. blood transfusion. 4. Hypertension. Adjust blood pressure medications as needed. 5. Recheck basic metabolic panel and CBC in a.m. Job ID: [id number]
[2019-09-25] MEDS: Ferrous Sulfate 325 MG TAB PO SCH (16:23)
--- NOTE | 2019-09-25 21:52 | PRG ---
DATE OF SERVICE: 09/25/2019 SUBJECTIVE: Mr. Lugo feels well. He denies being shaky. He states he drinks about 12 beers per day usually. He has been here for 2 days. He has not felt shaky yet. He came in on the at around 8 a.m. He denies any nausea, vomiting, melena, hematochezia, or hematemesis. OBJECTIVE: VITAL SIGNS: Temperature is 98, pulse 58, and blood pressure 142/77. LUNGS: Clear. HEART: Regular rate and rhythm. ABDOMEN: Soft, nontender. There is no rebound or guarding. LABORATORY DATA: Sodium 128, potassium 3.2, BUN and creatinine 30 and 3.07, bilirubin is 0.7, direct bilirubin is 0.4. AST is 24, down from 45 on admission; ALT is 14, down from 21 on admission. Protein is 5.6, albumin is 2.9, B12 was 484. AFP 2.5. Ceruloplasmin is low at 15.5, this is only mildly low. Ferritin was 307. Iron was 127, saturation is 73. B12 and folate were normal. Smooth muscle antibody pending. Plasma alcohol is 135 at admission. ASSESSMENT: 1. Anemia, this is probably related to alcohol myelosuppression. There are no signs of multiple myeloma as far as other etiologies such as leukemia. There does not appear to be any abnormal differential. At this time, there seems to be no signs of GI blood loss with normal iron stores, B12, and folate. Thus, no GI evaluation is recommended at this time. 2. Alcoholism. He wants to stop drinking. As I recommended, he talked with AA. At discharge, he probably should be on a multivitamin, thiamine, and folate in light of his heavy alcohol abuse. 3. Mildly elevated LFTs on admission, now resolved. He has mildly enlarged spleen on admission CT and some fatty liver as well along with his alcohol abuse. Again, not really further GI evaluations recommended. He has been here almost three days. 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 If I can be of any further assistance, please do not hesitate to contact me. For now, we will sign off. Job ID: [id number]
[2019-09-26 05:59] LABS: #Lymphocytes 0.5 thou/uL (1.20-3.40); #Monocytes 0.3 thou/uL (0.11-0.59); #Neutrophils 1.9 thou/uL (1.40-6.50); %Basophils 0.3 % (0.0-1.0); %Eosinophils 1.4 % (0.0-10.0); %Lymphocytes 18.2 % (21.0-51.0); %Monocytes 12.1 % (0.0-10.0); Hemoglobin 7.1 g/dL (14.0-18.0); Mean Corpuscular HGB CONC 34.3 g/dL (32.0-36.0); Mean Corpuscular Hemoglobin 32.8 pg (27.0-31.0); Mean Corpuscular Volume 95.7 fL (78.0-98.0); Mean Platelet Volume 7.6 fL (7.4-10.4); Platelet Count 47 thou/uL (130-400); RBC Distribution Width 13.5 % (11.5-14.5); Red Blood Cell (RBC) Count 2.16 mill/uL (4.70-6.10); White Blood Cell (WBC) Count 2.8 thou/uL (4.8-10.8)
[2019-09-26 06:16] LABS: Anion Gap 13 mmol/L (10-20); BUN (Urea Nitrogen) 36 mg/dL (8.9-20.6); Calc. Creatinine Clearance 28 mL/min (70-130); Carbon Dioxide 15 mmol/L (22-29); Chloride 107 mmol/L (98-107); Estimated GFR-MDRD 19; Glucose 108 mg/dL (70-105); Phosphorus 2.8 mg/dL (2.3-4.7); Potassium 3.6 mmol/L (3.5-5.1); Sodium 131 mmol/L (136-145)
[2019-09-26] MEDS: Sodium Bicarbonate Tab 325 MG TAB PO SCH ×2 (08:57→15:32)
[2019-09-26] MEDS: hydrALAZINE 25 MG TAB PO SCH ×2 (08:57→15:32)
[2019-09-26] MEDS: Metoprolol Tartrate 25 MG TAB PO SCH (08:58)
[2019-09-26] MEDS: Famotidine 20 MG TAB PO SCH (08:58)
[2019-09-26] MEDS: Folic Acid 1 MG TAB PO SCH (08:58)
[2019-09-26] MEDS: Cyanocobalamin (Vitamin B-12) 1,000 MCG TAB PO SCH (08:59)
[2019-09-26] MEDS: Ferrous Sulfate 325 MG TAB PO SCH ×2 (08:59→18:02)
[2019-09-26] MEDS ORDERED: Thiamine 100 MG TAB PO SCH (09:00)
[2019-09-26] MEDS ORDERED: Amlodipine 5 MG TAB PO SCH (09:00)
[2019-09-26] MEDS ORDERED: Multivitamin W/ Minerals 1 TAB PO SCH (09:00)
[2019-09-26] MEDS ORDERED: EPOETIN ALFA-EPBX (ESRD) 4,000 UNIT/ML VIAL SC SCH (10:00)
--- NOTE | 2019-09-26 10:05 | PRG ---
DATE OF SERVICE: 09/26/2019 SUBJECTIVE: Mr. Lugo is a 44-year-old male, who was seen by the Renal Service for his chronic renal failure. He has underlying diabetic nephropathy. Creatinine has been fluctuating. I do not think this kidney function will improve over time. This patient will eventually need dialytic intervention in the near future. He was also noted to be anemic. I have started him on Epogen. Prior to discharge with the low hemoglobin of 7.1, I would consider transfusing at least 1 unit of blood. No other complaints today, he is feeling better. OBJECTIVE: VITAL SIGNS: Blood pressure 160/87, heart rate 72, respiratory rate 16, temperature 98.5, pulse ox 100%. GENERAL: The patient is awake, alert and comfortable. SKIN: Adequate turgor. HEENT: Pale conjunctivae. Anicteric sclerae. NECK: No neck mass. No carotid bruits. No JVD. CHEST: No deformities. LUNGS: Clear breath sounds. No wheezing. No crackles. HEART: Normal sinus rhythm. No murmurs, gallops, or rubs. ABDOMEN: Globular, soft, nontender. No masses. EXTREMITIES: No edema. MEDICATIONS: September 26, 2019, reviewed. LABORATORY DATA: September 26, 2019; white count 2.8, hemoglobin 7.1. Sodium 131, potassium 3.6, chloride 107, carbon dioxide 15, BUN 36, creatinine 3.54, glucose 108, calcium 8.0, phosphorus 2.8, PTH is 122. ASSESSMENT/PLAN: 1. Chronic renal failure-most likely from diabetic nephropathy. Continue supportive care. 2. Continue to optimize diabetes control. 3. Pancytopenia. Consider Hematology consult as needed. 4. Anemia. I have started him on Epogen. Continue iron supplementation. 5. Consider transfusing 1 unit packed red blood cells. Overall, agree with current management. Job ID: [id number]
[2019-09-26] MEDS: HumaLOG 300 UNITS/3 ML VIAL SC PRN ×2 (12:54→18:02)
--- NOTE | 2019-09-26 15:06 | PDOC.HOSPP ---
- Subjective Encounter Date: 09/26/19 Encounter Time: 10:30 Subjective: States he is feeling better and ready to go home, no dizziness or shortness of breath - Objective Vital Signs & Weight: Vital Signs (12 hours) Temp Pulse Pulse Resp BP BP BP 09/26/19 13:34 97.7 F 62 20 122/76 09/26/19 08:58 72 160/87 H 09/26/19 08:57 72 160/87 H 09/26/19 08:55 09/26/19 08:00 98.5 F 72 16 160/87 H Pulse Ox 09/26/19 13:34 100 09/26/19 08:58 09/26/19 08:57 09/26/19 08:55 100 09/26/19 08:00 100 Weight Admit Weight 158 lb 8 oz Weight 158 lb 8 oz I&O: 09/25/19 09/26/19 09/27/19 06:59 06:59 06:59 Intake Total 1210 0 Output Total 800 Balance 410 0 Result Diagrams: 09/26/19 05:31 09/26/19 05:31 Additional Labs: Accuchecks 09/26/19 09/26/19 09/25/19 11:39 03:55 19:58 POC Glucose 154 H 131 H 127 H 09/25/19 15:22 POC Glucose 191 H Hospitalist ROS - Medication Medications: Active Medications Generic Name Dose Route Start Last Admin Trade Name Freq PRN Reason Stop Dose Admin Acetaminophen 650 mg 09/23/19 07:26 09/23/19 20:30 Tylenol PO 650 mg Q4H PRN Administration Headache/Fever Amlodipine Besylate 5 mg 09/26/19 09:00 09/26/19 08:58 Norvasc PO 5 mg DAILY ALISON Administration Clonidine 0.1 mg 09/23/19 14:02 09/24/19 14:51 Catapres PO 0.1 mg Q4H PRN Administration sbp>160 Cyanocobalamin 1,000 mcg 09/25/19 09:00 09/26/19 08:59 Vitamin B-12 PO 1,000 mcg DAILY ALISON Administration Epoetin Jack-epbx 7,500 unit 09/26/19 10:00 09/26/19 10:39 Retacrit SC 7,500 unit Q7D ALISON Administration Famotidine 20 mg 09/25/19 09:00 09/26/19 08:58 Pepcid PO Not Given DAILY [facility] Ferrous Sulfate 325 mg 09/25/19 17:00 09/26/19 08:59 Feosol PO 325 mg BID-WM ALISON Administration Folic Acid 1 mg 09/25/19 09:00 09/26/19 08:58 Folvite PO 1 mg DAILY ALISON Administration Hydralazine HCl 50 mg 09/25/19 15:00 09/26/19 08:57 Apresoline PO 50 mg TID ALISON Administration Insulin Human Lispro 0 units 09/23/19 14:27 09/26/19 12:54 Humalog SC 2 unit .MILD SLIDING SCALE PRN Administration Mild Correctional Scale Iron/Minerals/Multivitamins 1 tab 09/26/19 09:00 09/26/19 08:57 Theragran M PO 1 tab DAILY ALISON Administration Metoprolol Tartrate 25 mg 09/23/19 21:00 09/26/19 08:58 Lopressor PO 25 mg BID ALISON Administration Sodium Bicarbonate 650 mg 09/23/19 21:00 09/26/19 08:57 Bicarbonate, Sodium PO 650 mg TID ALISON Administration Sodium Chloride 10 ml 09/23/19 09:00 09/26/19 08:59 Flush - Normal Saline IVF 10 ml Q12HR ALISON Administration Thiamine HCl 100 mg 09/26/19 09:00 09/26/19 08:58 Thiamine PO 100 mg DAILY ALISON Administration - Exam General Appearance: NAD, awake alert Eye: PERRL, anicteric sclera Neck: supple, symmetric Heart: RRR, no murmur, normal peripheral pulses Respiratory: CTAB, no wheezes, no rales, no ronchi Gastrointestinal: soft, non-tender, non-distended, normal bowel sounds Neurological: no focal deficits Musculoskeletal: normal tone Psychiatric: normal affect, normal behavior Hosp A/P (1) Symptomatic anemia Code(s): D64.9 - ANEMIA, UNSPECIFIED Status: Acute (2) Acute on chronic kidney failure Code(s): N17.9 - ACUTE KIDNEY FAILURE, UNSPECIFIED; N18.9 - CHRONIC KIDNEY DISEASE, UNSPECIFIED Status: Acute Qualifiers: Chronic kidney disease stage: unspecified stage (3) Hyponatremia Code(s): E87.1 - HYPO-OSMOLALITY AND HYPONATREMIA Status: Acute (4) Cholelithiases Code(s): K80.20 - CALCULUS OF GALLBLADDER W/O CHOLECYSTITIS W/O OBSTRUCTION Status: Chronic Qualifiers: Cholelithiasis location: gallbladder Cholecystitis presence: without cholecystitis Biliary obstruction: without biliary obstruction Qualified Code(s): K80.20 - Calculus of gallbladder without cholecystitis without obstruction (5) Pancytopenia Code(s): D61.818 - OTHER PANCYTOPENIA Status: Acute (6) Alcohol abuse Code(s): F10.10 - ALCOHOL ABUSE, UNCOMPLICATED Status: Chronic (7) Cirrhosis of liver Code(s): K74.60 - UNSPECIFIED CIRRHOSIS OF LIVER Status: Suspected Qualifiers: Hepatic cirrhosis type: alcoholic cirrhosis Ascites presence: with ascites Qualified Code(s): K70.31 - Alcoholic cirrhosis of liver with ascites (8) Diabetes type 2, controlled Code(s): E11.9 - TYPE 2 DIABETES MELLITUS WITHOUT COMPLICATIONS Status: Acute Qualifiers: Diabetes mellitus fpc insulin use: with fpc use Diabetes mellitus complication status: with kidney complications Diabetes mellitus complication detail: with chronic kidney disease Chronic kidney disease stage : unspecified stage Qualified Code(s): E11.22 - Type 2 diabetes mellitus with diabetic chronic kidney disease; Z79.4 - group home (current) use of insulin - Plan Hematology consult: pancytopenia 1 unit PRBC Negative for fecal occult blood GI signed off Nephro following: Epogen started and to continue iron supplementation Continue to watch for alcohol withdrawals To receive community resources to help him stop drinking alcohol
[2019-09-26 16:26] VITALS: BP 147/89; TEMP 98.2
[2019-09-26 18:43] LABS: Band 21 % (5-11); Hemoglobin 10.3 g/dL (14.0-18.0); Lymphocytes 15 % (21-51); MDiff Complete? YES; Mean Corpuscular HGB CONC 34.7 g/dL (32.0-36.0); Mean Corpuscular Hemoglobin 32.9 pg (27.0-31.0); Mean Corpuscular Volume 94.8 fL (78.0-98.0); Mean Platelet Volume 7.7 fL (7.4-10.4); Monocytes 7 % (0-10); Neutrophil 55 % (42-75); Platelet Count 84 thou/uL (130-400); Platelet Morphology Comment Appears Decreased; Polychromasia SLIGHT = 2-3 cells (100X) (0-2/hpf); RBC Distribution Width 13.6 % (11.5-14.5); Reactive Lymphocytes 2 % (0-10); Red Blood Cell (RBC) Count 3.13 mill/uL (4.70-6.10); White Blood Cell (WBC) Count 6.5 thou/uL (4.8-10.8)
--- NOTE | 2019-09-26 20:16 | CON ---
DATE OF CONSULTATION: REASON FOR CONSULTATION: Pancytopenia. HISTORY OF PRESENT ILLNESS: Mr. Lugo is a 44-year-old gentleman with past medical history of diabetes, who presented to the emergency room three days ago with dizziness. He denied any upper respiratory issues. No chest pain or shortness of breath. In the ER, he was noted to have a white count of 3.5, a hemoglobin of 5.8, and a platelet count of 65,000. His differential was normal. He also had an elevated creatinine. He was admitted for further workup and treatment. Both GI and Nephrology were consulted and saw the patient. He had a CT of his abdomen and pelvis, which showed grossly normal liver. His spleen measured 16 cm. The patient states he drinks 8 to 12 beers daily and has for many years. He takes no medications at home and manages his diabetes with diet only. He has been transfused, so he was transfused 3 units on arrival and his hemoglobin has been stable around 7. B12, ferritin, and folate are all within normal range. He has been started on low-dose Epogen weekly by Nephrology. He denies any complaints at this time. Culture length was used in examination of patient. PAST MEDICAL HISTORY: 1. Diabetes, untreated. 2. Alcohol abuse. 3. Tobacco use. PAST SURGICAL HISTORY: None. ALLERGIES: PENICILLIN. HOME MEDICATIONS: None. FAMILY HISTORY: Mother had breast cancer at a late age. Father from unknown cancer. SOCIAL HISTORY: Single. 8 to 12 beers a day for the last 15+ years. Former smoker and prior history of cocaine use. REVIEW OF SYSTEMS: A 10-point review of systems is negative except for noted in HPI. PHYSICAL EXAMINATION: VITAL SIGNS: Temperature is 97.7, pulse is 72, respiratory rate 20, blood pressure is 122/76. He is 100% on room air. GENERAL: This is a well-developed, well-nourished male, in no acute distress. HEENT: Normocephalic and atraumatic. Pupils are equal and reactive to light. NECK: Supple. CV: Regular rate and rhythm. LUNGS: Clear. ABDOMEN: Soft and nontender. No hepatomegaly palpable. EXTREMITIES: No clubbing or cyanosis. SKIN: No rash. HEMATOLOGIC: He does have scattered bruising on his arms. NEUROLOGIC: Nonfocal. PERTINENT LABORATORY DATA AND X-RAYS: Current WBCs are 2.7, hemoglobin 7.2, hematocrit 20.9, platelet count 61,000. He has 77% neutrophils, 14% lymphocytes. PT 13.7, INR is 1.1, and PTT is 34.2. Sodium is 131, potassium 3.6, chloride 107, CO2 is 15, BUN is 36, creatinine 3.52, calcium 8, phosphorus 2.8. Bilirubin 0.7, AST is 24, ALT is 14, alkaline phosphatase is 81. Serum total protein 5.6, albumin 2.9, B12 of 484, folate 9.5, and ferritin 307. Plasma alcohol on arrival is 135. Hepatitis panel negative. Radiology per HPI. ASSESSMENT: Pancytopenia, multifactorial, likely secondary to myelosuppression from chronic alcohol abuse; mild splenomegaly; chronic kidney disease; poorly-controlled diabetes; and poor nutrition. DISCUSSION: The patient was examined at bedside with a cultural link. We discussed the abnormalities in his blood and strongly encouraged him to refrain from any alcohol intake and to improve his nutritional status. I agree with GI that he should be discharged home on multivitamin, thiamine, and folate. Thank you for the consult. Job ID: [id number]
--- NOTE | 2019-09-27 20:10 | DIS ---
DATE OF ADMISSION: 09/23/2019 DATE OF DISCHARGE: 09/26/2019 DISCHARGE DISPOSITION AND FOLLOWUP: The patient was discharged home. The patient was seen and examined on the day of discharge. Denies any new complaints. INPATIENT CONSULTS: Gastroenterology, Nephrology, and Oncology. CLINICAL COURSE: The patient is a 44-year-old male with a history of alcohol abuse and diabetes, which he has not been taking medications for. He presented to the hospital for feeling dizzy when he get up in the morning. He has a history of drinking at least 8 beers daily and has been doing so from the age of 20. He did not report any hemoptysis, hematemesis, or melena. He was admitted inpatient medical for pancytopenia with severe anemia. He was placed on a Protonix drip and octreotide drip and serial H and H's were performed. Gastroenterology was consulted. Gastroenterology saw him and felt that the pancytopenia did not appear to represent any acute gastrointestinal hemorrhage and felt that might be having direct bone marrow toxicity from the heavy alcohol use , which could be responsible for the pancytopenia and hyponatremia. The octreotide was discontinued at that time. The patient also had acute kidney injury versus chronic kidney disease, and Nephrology was consulted for him. Nephrology saw the patient while inhouse. They started him on Epogen and ordered 1 unit of blood prior to discharge. Oncology was consulted due to the pancytopenia, feeling it was multifactorial likely secondary to myelosuppression from chronic alcohol abuse. Patient had a total of 4 units of blood while hospitalized. Followup H and H was obtained before discharge and patient reported no feelings of dizziness any longer. He was advised to be compliant with his medications upon discharge and to seek assistance for cessation of alcohol intake. FINAL DIAGNOSES: 1. Symptomatic anemia. 2. Acute on chronic kidney failure. 3. Hyponatremia. 4. Cholelithiasis. 5. Pancytopenia. 6. Alcohol abuse. 7. Diabetes, type 2. DISCHARGE MEDICATIONS: 1. Amlodipine 5 mg p.o. daily. 2. Vitamin B12 of 1000 mcg p.o. daily. 3. Epogen 7500 units subcu q.7 days., to be followed up with in Dr. Shannon's office. 4. Ferrous sulfate 325 mg daily. 5. Folic acid 1 mg tablet p.o. daily. 6. Hydralazine 50 mg p.o. t.i.d. 7. Metoprolol tartrate 25 mg p.o. b.i.d. 8. Multivitamin one tablet p.o. daily. 9. Sodium bicarbonate 650 mg p.o. t.i.d. 10. Thiamine 100 mg p.o. daily. DISCHARGE INSTRUCTIONS: The patient was extensively counseled to quit drinking and to take these medications as prescribed. He was strongly encouraged to follow up with Dr. Shannon in his office and to find a primary care physician. Was also given information regarding alcohol cessation assistance including AA. TIME SPENT: Total time coordinating the discharge of this patient was 35 minutes. Job ID: [id number] [id number]
== END 2019-09-26 20:14 | disposition home or self-care (01) | DRG 809 ==
LOC: ERS 03:58 → T4-A 06:50
PROVIDERS: ADMIT Internal Medicine; ATTEND Internal Medicine
PROC: 30233N1 Transfusion of Nonautologous Red Blood Cells into Peripheral Vein, Percutaneous Approach (ICD-10-PCS; principal; 2019-09-23)
PROC: HZ2ZZZZ Detoxification Services for Substance Abuse Treatment (ICD-10-PCS; 2019-09-23)
DX: D61.818 Other pancytopenia (principal); N17.9 Acute kidney failure, unspecified; E87.1 Hypo-osmolality and hyponatremia; E87.2 Acidosis; F10.10 Alcohol abuse, uncomplicated; E11.22 Type 2 diabetes mellitus with diabetic chronic kidney disease; I12.9 Hypertensive chronic kidney disease with stage 1 through stage 4 chronic kidney disease, or unspecified chronic kidney disease; K80.20 Calculus of gallbladder without cholecystitis without obstruction; K70.31 Alcoholic cirrhosis of liver with ascites; R16.1 Splenomegaly, not elsewhere classified; E11.65 Type 2 diabetes mellitus with hyperglycemia; Z88.0 Allergy status to penicillin; Z87.891 Personal history of nicotine dependence; Z79.4 Long term (current) use of insulin
CPT/HCPCS: 36415; 36416; 36430; 74176; 76770; 80048; 80053; 80074; 80076; 80307; 81001; 82105; 82274; 82390; 82607; 82728; 82746; 83516; 83540; 83550; 83970; 84100; 84484; 85025; 85046; 85060; 85610; 85730; 86038; 86225; 86850; 86900; 86901; 93005; 96361; 96365; C9113; J2354; J2550; J3411; J3490; J7042; J7050; J7070; P9016; Q5105